=== PATIENT | female | born 1970 | race Caucasian/White ===

== ENCOUNTER → 2016-09-11 | Outpatient (CLI) | payer OTHER | LOC: BMCIMAGING 08:39 | PROVIDERS: ATTEND Family Medicine | DX: N94.6 Dysmenorrhea, unspecified (principal); D25.0 Submucous leiomyoma of uterus; D25.2 Subserosal leiomyoma of uterus | CPT/HCPCS: G0202 ==

== ENCOUNTER 2017-12-04 19:47 | Emergency (ER) | payer OTHER ==
[2017-12-04] MEDS ORDERED: TDAP ADULT 0.5 ML INJ (BOOSTRIX) IM ONE (22:24)
--- NOTE | 2017-12-04 22:24 | EDPHY ---
General Time Seen by Provider: 12/04/17 22:24 Narrative: CHIEF COMPLAINT: Toe laceration HISTORY OF PRESENT ILLNESS: Patient presents with complaints of right big toe laceration. She states that she was running outside around 7:30 p.m. Without shoes. She caught her toe on something and sustained a laceration to the toe. Bleeding stopped with pressure. She had to keep running to go back to her car. She has some pain that is [id number] with palpation. No numbness or tingling. No injury to the right mid foot, heel or leg. Her tetanus is questionable status. Pain is worse with palpation weight-bearing. Improved at rest. Does not radiate. No other associated complaints or modifying factors. TIME OF INJURY: 7:30 p.m. Today TETANUS STATUS: Uncertain MEDICAL/SURGICAL/SOCIAL HISTORY: Raynaud's syndrome, factor 5 Leiden, ovarian cysts REVIEW OF SYSTEMS: Ten systems reviewed and are negative unless otherwise noted in the HPI EXAMINATION General Appearance: Alert, no distress Head: normocephalic, atraumatic Cardiovascular: Symmetric DP pulses 2+. Brisk cap refill the right great toe. Neurological: A&O, strength is symmetric of the great toes. Light sensation is symmetric to the dorsum of the feet. Skin: Warm and dry, no rash. There is a 1 cm curvilinear laceration on the pad of the right great toe. No involvement of the nail or nail bed. No pulsatile bleeding. No foreign body. There is debris and dirt surrounding the wound. Extremities: Tender in the area of the right great toe laceration only. There is no tenderness of the right midfoot, calcaneus or right knee. Range of motion is symmetric in both lower extremities. DIFFERENTIAL DIAGNOSES: Including but not limited to laceration, laceration with complication, laceration with tendon injury, MDM: 10:20 p.m. Laceration to the right great toe. I have administered a digital block to the toe. We will irrigate and re-evaluate. Tetanus will be updated. No acute distress. No evidence of fracture 11:00 p.m. Laceration of the toes been irrigated this is very superficial put I do feels can be closed with Dermabond and the patient is requesting this per this was done without difficulty and tolerated well. We discuss wound care. We discuss signs of infection to watch for. We discussed weight-bearing as tolerated with light activity. She is discharged home stable condition. PROCEDURE: Laceration repair Consent: Verbal Location: Right great toe Length of repair: 1 cm, no involvement of the nail Complexity: Simple Layer involvement: Single Anesthesia: Digital block Irrigation: Extensive Debridement: None Procedure description: Following good anesthesia, the wound was copiously irrigated. Wound bed was explored with a sterile glove, and there is no foreign body noted. Wound borders were approximated well with good hemostasis. Tolerated well without complication. Suture/Staple material: Dermabond adhesive Wound care: Routine as discussed Suture/Staple removal: Days PROCEDURE: Digital Block Indication: Finger laceration Consent: Verbal Location: Right great toe Anesthesia: Lidocaine 1% plain, 0.25% Marcaine plain, 5mL Description: Base of the finger was prepped. The above was infused without difficulty. Tolerated well. Good anesthesia. Complications: None SUPERVISION: This patient was independently evaluated without direct involvement of or examination by the attending physician. ED Precautions: Worsening pain. Erythema, edema, cyanosis, pallor, paresthesia or anesthesia. - History Smoking Status: Never smoked - Objective Vital Signs: Initial Vital Signs Temperature (C) 97.7 F 12/04/17 20:18 Heart Rate 84 12/04/17 20:18 Respiratory Rate 18 12/04/17 20:18 Blood Pressure 113/75 12/04/17 20:18 O2 Sat (%) 97 12/04/17 20:18 O2 Delivery Mode Room Air Allergies/Adverse Reactions: No Known Allergies Allergy (Unverified 12/04/17 20:18) Home Medications: Medication Instructions Recorded NK [No Known Home Meds] 12/04/17 Medications Given: Discontinued Medications Diphtheria/Tetanus/Acell Pertussis (Boostrix) 0.5 ml IM .ONCE ONE Stop: 12/04/17 22:25 Last Admin: 12/04/17 22:35 Dose: 0.5 ml Departure - Departure Disposition: Home, Routine, Self-Care Clinical Impression: Laceration of right great toe Qualifiers: Encounter type: initial encounter Damage to nail status: without damage Foreign body presence: without foreign body Qualified Code(s): S91.111A - Laceration without foreign body of right great toe without damage to nail, initial encounter Condition: Good Instructions: Laceration (ED), Skin Adhesive Care (ED) Additional Instructions: 1. Daily wound care as discussed 2. Avoid any topical treatments to the wound 3. Return to ER for any redness, warmth or signs of infection as discussed Referrals: Meredith Ramirez DO [Primary Care Provider] - As per Instructions
[2017-12-04 22:39] VITALS: BP 134/93
[2017-12-04] MEDS ORDERED: SKIN ADHESIVE (DERMABOND) 1 EACH TP ONE (23:01)
== END 2017-12-04 23:24 | disposition home or self-care (01) ==
PROC: 0HQMXZZ Repair Right Foot Skin, External Approach (ICD-10-PCS; principal; 2017-12-04)
DX: S91.111A Laceration without foreign body of right great toe without damage to nail, initial encounter (principal); Z23 Encounter for immunization; W23.0XXA Caught, crushed, jammed, or pinched between moving objects, initial encounter; Y92.89 Other specified places as the place of occurrence of the external cause; Y99.8 Other external cause status; Y93.02 Activity, running